=== PATIENT | male | born 1990 | race Caucasian/White ===

== ENCOUNTER 2023-07-01 08:36 | Outpatient (AMB) | payer BC, SELFPAY ==
--- NOTE | 2023-07-01 08:47 | MHC.OFFWIV ---
Intake Vital Signs 07/01/23 08:56 Height 5 ft 11 in Weight 210 lb 8 oz BMI 29.4 BP 100/62 Blood Pressure Location Lt brachial Position Sitting Respiration 13 Pulse 76 Pulse Source Pulse Oximeter Temp 98.7 F Temp Source Oral Pulse Oximetry (%) 95 Oxygen Delivery Method Room Air Intake Visit Reasons: Sore throat,chest tightness Intake Note: Patient is here with chest congestion, cough and sore throat x4 weeks. 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 Not UTD on vaccines + cough, productive , nasal congestion and drainage Nyquil and cough drops without relief Denies fever, chills, ear pain Review of Systems Const All systems reviewed & are unremarkable except as noted in HPI and below Physical Exam Vital Signs: Last Vital Signs Temp 98.7 F 07/01/23 08:56 Pulse 76 07/01/23 08:56 Resp 13 07/01/23 08:56 BP 100/62 07/01/23 08:56 Pulse Ox 95 07/01/23 08:56 Oxygen Delivery Method Room Air 07/01/23 08:56 BMI result Body Mass Index 29.4 Const Other: awake alert nad conjunctiva clear bilat TM intact clear bilat turbinates pale, edematous, nares w/ mucoid d/c bilat, frontal and maxillary sinuses TTP bilat pharynx + PND, no exudate No cervical adenopathy LS CTAB, occassional dry hacking cough noted w/o distress RRR Results AMB Rapid Strep AMB Rapid Strep Negative Last Edit by Asmita Carson CMA on 07/01/23 09:03 Assessment & Plan Assessment & Plan (1) Sinusitis: Code(s): J32.9 - Chronic sinusitis, unspecified Qualifiers: Sinusitis location: pansinusitis Chronicity: acute Recurrence: non-recurrent Qualified Code(s): J01.40 - Acute pansinusitis, unspecified (2) Post-nasal drip: Code(s): R09.82 - Postnasal drip Orders: Orders AMB Rapid Strep Screen Today Z13.9 - Encounter for screening, unspecified Medications: New amoxicillin-pot clavulanate 875-125 mg 1 tab PO Q12H 10 days 20 tabs 0RF fluticasone propionate 50 mcg/actuation administer into each nostril 1 spray intranasal BID 16 grams 0RF Patient Instructions: exam c/w sinusitis. take ab as prescribed with food. do not use nasal afrin or other nasal decongestants. if no improvement or any worsening of sx, seek addl care. Coding Level of Care Code Est Pt Level 3 (75096) Diagnoses Acute non-recurrent pansinusitis J01.40 Sinusitis location: pansinusitis Chronicity: acute Recurrence: non-recurrent Post-nasal drip R09.82
[2023-07-01 08:56] VITALS: BP 100/62; PULSE 76; RESP 13; TEMP 37.1; O2SAT 95; BMI 29.4
== END 2023-07-01 09:34 | disposition home or self-care (01) ==
PROVIDERS: Visit Provider Nurse Practitioner Family
DX: J01.40 Acute pansinusitis, unspecified (principal); R09.82 Postnasal drip; J02.9 Acute pharyngitis, unspecified
CPT/HCPCS: 87880; 99213